=== PATIENT | female | born 1970 | race African-American/Black ===

== ENCOUNTER 2022-07-07 18:38 | Emergency (ER) | payer OTHER ==
[~2022-07-07] VITALS: Ht 157.5 cm; Wt 100.0 kg
[2022-07-07] MEDS ORDERED: IBUPROFEN 600 MG TABLET PO ONE (20:30)
[2022-07-07 21:32] VITALS: BP 148/80
== END 2022-07-07 21:33 | disposition home or self-care (01) ==
LOC: EMS 18:38
DX: S89.91XA Unspecified injury of right lower leg, initial encounter (principal); E66.01 Morbid (severe) obesity due to excess calories; F17.210 Nicotine dependence, cigarettes, uncomplicated; Y04.0XXA Assault by unarmed brawl or fight, initial encounter; Y93.89 Activity, other specified; Y92.89 Other specified places as the place of occurrence of the external cause; Y99.8 Other external cause status; Z88.0 Allergy status to penicillin
CPT/HCPCS: 99283